=== PATIENT | female | born 2000 | race Caucasian/White ===

== ENCOUNTER 2022-10-27 08:05 | Emergency (ER) | payer OTHER ==
[2022-10-27] MEDS ORDERED: Fluorescein Opthalmic Strip ONE (09:24)
[2022-10-27] MEDS ORDERED: Proparacaine 0.5% Opth 15 ML BOT ONE (09:24)
== END 2022-10-27 10:15 | disposition home or self-care (01) ==
LOC: ERS 08:05
DX: H10.9 Unspecified conjunctivitis (principal); G43.909 Migraine, unspecified, not intractable, without status migrainosus; J45.909 Unspecified asthma, uncomplicated
CPT/HCPCS: 99282